=== PATIENT | male | born 1975 | race Caucasian/White ===

== ENCOUNTER 2017-07-21 15:38 | Emergency (ER) | payer MEDICAID ==
[2017-07-21 16:38] VITALS: BMI 27.3
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
[2017-07-21 18:41] LABS: BASO % 0.5 % (0.0-2.0); EOS # 0.4 K/uL (0.0-0.7); EOS % 3.9 % (0.0-4.0); HEMOGLOBIN 13.1 g/dL (12.0-18.0); LYMPH # 4.4 K/uL (1.0-4.3); LYMPH % 47.7 % (20.0-40.0); MEAN CELL VOLUME 86.5 fL (80.0-94.0); MEAN CORPUSCULAR HEMOGLOBIN 29.8 pg (27.0-31.0); MEAN CORPUSCULAR HGB CONC 34.5 g/dL (33.0-37.0); MONO # 0.8 K/uL (0.0-0.8); MONO % 8.5 % (0.0-10.0); NEUT # 3.6 K/uL (1.8-7.0); NEUT % 39.4 % (50.0-75.0); RBC 4.38 Mil/uL (4.40-5.90); RED CELL DISTRIBUTION WIDTH 14.4 % (11.5-14.5); WHITE BLOOD COUNT 9.2 K/uL (4.8-10.8)
[2017-07-21 18:47] LABS: SQUAMOUS EPITHIAL < 1 /hpf (0-5); URINE BACTERIA OCC (<OCC); URINE BILIRUBIN NEGATIVE (NEGATIVE); URINE BLOOD 1+ (NEGATIVE); URINE CLARITY Clear (Clear); URINE COLOR Yellow (YELLOW); URINE GLUCOSE (UA) NORMAL (Normal); URINE LEUKOCYTE ESTERASE NEG Leu/uL (Negative); URINE NITRATE NEGATIVE (NEGATIVE); URINE PROTEIN NEGATIVE (NEGATIVE)
[2017-07-21 19:01] LABS: ALB/GLOB RATIO 1.4 (1.0-2.1); ALT/SGPT 17 U/L (21-72); AST/SGOT 18 U/L (17-59); BARBITURATES, UR NEGATIVE (NEGATIVE); BLOOD UREA NITROGEN 11 mg/dL (9-20); CALCIUM 8.9 mg/dl (8.6-10.4); GFR AFRICAN-AMERICAN > 60; GFR NON-AFRICAN AMERICAN > 60; OPIATES, UR NEGATIVE (NEGATIVE); PHENCYCLIDINE, UR NEGATIVE (NEGATIVE)
[2017-07-21 19:02] LABS: BENZODIAZEPINES, UR POSITIVE (NEGATIVE)
[2017-07-21 20:36] VITALS: BP 134/78; PULSE 68; RESP 20; TEMP 98.9; O2SAT 97
== END 2017-07-21 20:33 | disposition home or self-care (01) ==
LOC: C.ER 15:38
DX: F19.10 Other psychoactive substance abuse, uncomplicated (principal)

== ENCOUNTER 2017-07-22 11:47 | Emergency (ER) | payer MEDICAID ==
[2017-07-22 11:47] VITALS: BMI 27.3
[2017-07-22 12:12] VITALS: BP 128/87; PULSE 76; RESP 18; TEMP 98.3; O2SAT 99
== END 2017-07-22 13:51 | disposition left against medical advice (07) ==
LOC: C.ER 11:47
DX: Z02.89 Encounter for other administrative examinations (principal); F14.10 Cocaine abuse, uncomplicated